=== PATIENT | male | born 1970 | race Asian ===

== ENCOUNTER 2019-03-25 08:26 | Emergency (ER) | payer MEDICAID, OTHER ==
[~2019-03-25] VITALS: Ht 180.3 cm; Wt 84.1 kg
[~2019-03-25 08:26] MED LIST: AZIT1PAC10 PO
[2019-03-25 08:41] VITALS: BP 135/89
[2019-03-25] MEDS ORDERED: pantoprazole 40mg Tablet.DR PO STA (09:47)
[2019-03-25] MEDS ORDERED: LORazepam 1 MG tablet PO ONE (09:50)
[2019-03-25] MEDS ORDERED: dicyclomine 10 MG capsule PO ONE (09:50)
--- NOTE | 2019-03-25 09:56 | NUR ---
PT REPROTS THAT HIS DAUGHTER CAN COME TO THE HOSPITAL AND PICK HIM U FOR A RIDE HOME, DUE TO PT TAKING ATIVAN.
[2019-03-25] MEDS ORDERED: PANT20TA3 PO (10:06)
[2019-03-25] MEDS ORDERED: LORA-269 PO (10:06)
[2019-03-25] MEDS ORDERED: DICY10CA88 PO (10:06)
== END 2019-03-25 10:53 | disposition home or self-care (01) ==
LOC: ER 08:26
DX: F10.230 Alcohol dependence with withdrawal, uncomplicated (principal); R11.10 Vomiting, unspecified; F15.90 Other stimulant use, unspecified, uncomplicated; F11.90 Opioid use, unspecified, uncomplicated; Z79.899 Other long term (current) drug therapy; Y90.9 Presence of alcohol in blood, level not specified
CPT/HCPCS: 99284

== ENCOUNTER 2019-09-18 04:45 | Inpatient (IN) | payer SELFPAY ==
[~2019-09-18] VITALS: Ht 180.3 cm; Wt 86.4 kg
[~2019-09-18 04:45] MED LIST changes: +DICY10CA88 PO; +LORA-269 PO; +PANT20TA3 PO
[2019-09-18] MEDS ORDERED: LORazepam 2 mg/ml vial IV ONE ×2 (04:55→05:10)
[2019-09-18] MEDS ORDERED: magnesium 2GM in 50ml NS 50 ML IV ONE ×2 (05:05→05:10)
[2019-09-18] MEDS ORDERED: haloperidol lactate 5mg/ml inj IM ONE ×2 (05:05)
[2019-09-18] MEDS ORDERED: cloNIDine 0.1 mg tablet PO SCH (05:10)
[2019-09-18 05:32] LABS: BASOPHILS # (AUTO) 0.1 X10'3 (0-0.2); BASOPHILS % (AUTO) 1.1 % (0-1); EOSINOPHILS # (AUTO) 0.5 X10'3 (0-0.9); EOSINOPHILS % (AUTO) 4.4 % (0-6); HEMATOCRIT 48.3 % (42.0-52.0); HEMOGLOBIN 16.9 g/dl (14.0-17.9); LYMPHOCYTES # (AUTO) 4.2 X10'3 (1.1-4.8); LYMPHOCYTES % (AUTO) 40.2 % (21-51); MEAN CORPUSCULAR HEMOGLOBIN 33.4 PG (27.0-31.0); MEAN CORPUSCULAR VOLUME 95.4 FL (78-98); MEAN PLATELET VOLUME 10.3 FL (7.4-10.4); MONOCYTES # (AUTO) 1.3 X10'3 (0-0.9); MONOCYTES % (AUTO) 12.1 % (2-12); NEUTROPHILS # (AUTO) 4.4 X10'3 (1.8-7.7); NEUTROPHILS % (AUTO) 42.2 % (42-75); PLATELET COUNT 233 X10'3 (140-440); RED BLOOD COUNT 5.06 X10'6 (4.70-6.10); RED CELL DISTRIBUTION WIDTH 13.4 % (11.5-14.5); WHITE BLOOD COUNT 10.5 X10'3 (4.5-11.0)
[2019-09-18 05:43] LABS: ALANINE AMINOTRANSFERASE 70 U/L (12-78); ALBUMIN 4.4 G/DL (3.4-5.0); ALKALINE PHOSPHATASE 50 IU/L (46-116); ANION GAP 17 (8-16); ASPARTATE AMINO TRANSFERASE 50 U/L (10-37); BILIRUBIN,TOTAL 0.5 MG/DL (0.1-1.0); BLOOD UREA NITROGEN 11 MG/DL (7-18); BUN/CREATININE RATIO 10.5 (5.4-32.0); CALCIUM 9.7 MG/DL (8.5-10.1); CHLORIDE 104 MMOL/L (99-107); CREATININE 1.05 MG/DL (0.60-1.10); GLUCOSE 111 MG/DL (70-104); MAGNESIUM 1.8 MG/DL (1.5-2.4); POTASSIUM 3.2 MMOL/L (3.5-5.1); SODIUM 141 MMOL/L (135-145); TOTAL CARBON DIOXIDE 20.1 MMOL/L (24-32); TOTAL PROTEIN 8.6 G/DL (6.4-8.2); eGFR 75 ML/MIN
[2019-09-18] MEDS ORDERED: potassium 10mEq/100ml NS w/LIDOcaine (10mg/bag) IV ONE (05:50)
[2019-09-18] MEDS ORDERED: potassium Cl 10 mEq/100mL bag IV ONE (05:55)
[2019-09-18 05:56] LABS: LIPASE 177 U/L (73-393)
[2019-09-18] MEDS ORDERED: CHLO25CA10 PO ×2 (05:57→11:08)
[2019-09-18] MEDS ORDERED: HYDROcodone/acetaminophen 5mg/325mg tablet PO PRN (06:05)
[2019-09-18] MEDS ORDERED: magnesium 2GM in 50ml NS 50 ML IV PRN (06:05)
[2019-09-18] MEDS ORDERED: magnesium hydroxide 30ml (MOM) UD suspension PO PRN (06:05)
[2019-09-18] MEDS ORDERED: magnesium Cl slow-release 64mg tablet PO PRN (06:05)
[2019-09-18] MEDS ORDERED: thiamine inj. 100 MG in normal saline 100ml IV soln 100 ML IV ONE (06:05)
[2019-09-18] MEDS ORDERED: haloperidol lactate 5mg/ml inj IM PRN (06:05)
[2019-09-18] MEDS ORDERED: magnesium 4gm in 100ml NS 100 ML IV PRN (06:05)
[2019-09-18] MEDS ORDERED: LORazepam 2 mg/ml vial IV PRN (06:05)
[2019-09-18] MEDS ORDERED: mag hydrox/Alum hydrox/simeth 30ml oral suspension PO PRN (06:05)
[2019-09-18] MEDS ORDERED: potassium Cl 20 mEq SR tablet PO PRN ×2 (06:05)
[2019-09-18] MEDS ORDERED: potassium CL 10mEq/100ml bag 100 ML IV PRN ×2 (06:05)
[2019-09-18] MEDS ORDERED: acetaminophen 325mg tablet PO PRN (06:05)
[2019-09-18] MEDS ORDERED: haloperidol 5mg tablet PO PRN (06:05)
[2019-09-18] MEDS ORDERED: ondansetron/PF 4mg/2ml inj IV PRN (06:05)
[2019-09-18] MEDS ORDERED: chlordiazePOXIDE 25mg capsule PO PRN (06:30)
--- NOTE | 2019-09-18 07:02 | NUR ---
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
[2019-09-18 07:52] LABS: URINE AMPHETAMINE SCREEN NEGATIVE (Neg); URINE BARBITUATE SCREEN NEGATIVE (Neg); URINE BENZODIAZEPINES SCREEN POSITIVE (Neg); URINE CANNABINOID SCREEN POSITIVE (Neg); URINE COCAINE SCREEN NEGATIVE (Neg); URINE METHADONE SCREEN NEGATIVE (Neg); URINE OPIATE SCREEN NEGATIVE (Neg); URINE PHENCYCLIDINE SCREEN NEGATIVE (Neg)
[2019-09-18] MEDS ORDERED: K and/or MAG REPLACEMENT MC SCH (08:00)
[2019-09-18] MEDS ORDERED: multivitamins, therapeutics tablet PO SCH (08:00)
[2019-09-18] MEDS ORDERED: folic acid inj. 2 MG, thiamine inj. 100 MG, MVI, adult No.4 with vit. K 10 ML in dextro... IV SCH ×4 (08:00)
[2019-09-18] MEDS ORDERED: thiamine 100mg tablet PO SCH (08:00)
[2019-09-18] MEDS ORDERED: folic acid 1mg tablet PO SCH (08:00)
--- NOTE | 2019-09-18 09:08 | NUR ---
spoke to pharmacist heidy regarding pt po folic acid multivit abd thamine and pt receving banan bag not complete yet ,as per pt is tolerating meals as per heidy he will put stop time on banana bag until its finished and start po meds for tomm morning.
[2019-09-18 10:10] VITALS: BP 123/85
--- NOTE | 2019-09-18 10:11 | NUR ---
pt arrived to [facility] from ER for etoh withdrawal. Pt a/ox3 and calm and pleasant, denies anxiety at this time. VSS. Pt states hx of seizure once when withdrawing. seizure pads placed on bed. Banana bag running @ 125ml/hr.
--- NOTE | 2019-09-18 12:06 | NUR ---
pt discharged to home. IV's removed. d/c paperwork reviewed and Rx for Librium give to pt per MD. pt walked to [facility] w[facility]tech for d/c.
[2019-09-19] MEDS ORDERED: multivitamins, therapeutics tablet PO SCH (08:00)
[2019-09-19] MEDS ORDERED: thiamine 100mg tablet PO SCH (08:00)
[2019-09-19] MEDS ORDERED: folic acid 1mg tablet PO SCH (08:00)
[2019-09-20] MEDS ORDERED: LORazepam 2 mg/ml vial IV PRN (06:05)
[2019-09-20] MEDS ORDERED: LORazepam 1 MG tablet PO PRN (06:05)
[2019-09-22] MEDS ORDERED: LORazepam 1 MG tablet PO PRN (06:05)
[2019-09-22] MEDS ORDERED: LORazepam 2 mg/ml vial IV PRN (06:05)
== END 2019-09-18 12:00 | disposition home or self-care (01) | DRG 897 ==
LOC: ER 04:45 → ED HOLD 06:04 → ORTHO 4S 09:40
PROVIDERS: ADMIT Family Medicine; ATTEND Family Medicine
DX: F13.239 Sedative, hypnotic or anxiolytic dependence with withdrawal, unspecified (principal); F10.231 Alcohol dependence with withdrawal delirium; E87.6 Hypokalemia; F11.90 Opioid use, unspecified, uncomplicated; F15.90 Other stimulant use, unspecified, uncomplicated; F41.9 Anxiety disorder, unspecified; I10 Essential (primary) hypertension; Z82.49 Family history of ischemic heart disease and other diseases of the circulatory system; Z79.899 Other long term (current) drug therapy
CPT/HCPCS: 36415; 80053; 80305; 80320; 83690; 83735; 84484; 85025; 93005; 96365; 96375; 96376; 99285; G0378; J1630; J2060; J3411; J3475; J3480; J3490; J7060

== ENCOUNTER 2019-10-30 16:07 | Emergency (ER) | payer OTHER ==
[~2019-10-30] VITALS: Ht 180.3 cm; Wt 82.2 kg
[~2019-10-30 16:07] MED LIST changes: -AZIT1PAC10 PO; +CHLO25CA10 PO; -DICY10CA88 PO; -LORA-269 PO; -PANT20TA3 PO
[2019-10-30] MEDS ORDERED: magnesium 2GM in 50ml NS 50 ML IV ONE (19:40)
[2019-10-30 19:48] LABS: BASOPHILS # (AUTO) 0.1 X10'3 (0-0.2); EOSINOPHILS # (AUTO) 0.1 X10'3 (0-0.9); HEMATOCRIT 50.4 % (42.0-52.0); HEMOGLOBIN 17.5 g/dl (14.0-17.9); LYMPHOCYTES # (AUTO) 3.7 X10'3 (1.1-4.8); LYMPHOCYTES % (AUTO) 36.1 % (21-51); MEAN CORPUSCULAR HGB CONC 34.7 g/dL (33.0-36.5); MEAN CORPUSCULAR VOLUME 95.2 FL (78-98); MONOCYTES # (AUTO) 0.8 X10'3 (0-0.9); MONOCYTES % (AUTO) 8.1 % (2-12); NEUTROPHILS # (AUTO) 5.5 X10'3 (1.8-7.7); NEUTROPHILS % (AUTO) 53.8 % (42-75); PLATELET COUNT 230 X10'3 (140-440); RED BLOOD COUNT 5.29 X10'6 (4.70-6.10); WHITE BLOOD COUNT 10.3 X10'3 (4.5-11.0)
[2019-10-30 19:56] LABS: ALBUMIN 4.4 G/DL (3.4-5.0); ANION GAP 12 (8-16); BILIRUBIN,TOTAL 0.4 MG/DL (0.1-1.0); BLOOD UREA NITROGEN 12 MG/DL (7-18); BUN/CREATININE RATIO 14.8 (5.4-32.0); CALCIUM 8.8 MG/DL (8.5-10.1); CHLORIDE 102 MMOL/L (99-107); CREATININE 0.81 MG/DL (0.60-1.10); GLUCOSE 104 MG/DL (70-104); POTASSIUM 3.7 MMOL/L (3.5-5.1); SODIUM 140 MMOL/L (135-145); TOTAL CARBON DIOXIDE 26.4 MMOL/L (24-32); TOTAL PROTEIN 8.7 G/DL (6.4-8.2); eGFR > 90 ML/MIN
[2019-10-30 19:57] LABS: ALANINE AMINOTRANSFERASE 35 U/L (12-78); ALKALINE PHOSPHATASE 48 IU/L (46-116); ASPARTATE AMINO TRANSFERASE 30 U/L (10-37); ETHANOL 0.232 GM/DL (0.0-0.010)
[2019-10-30] MEDS ORDERED: chlordiazePOXIDE 25mg capsule PO ONE (20:20)
[2019-10-30 20:22] LABS: LIPASE 87 U/L (73-393)
[2019-10-30] MEDS ORDERED: normal saline 1000ml 1,000 ML IV ONE ×2 (20:25)
[2019-10-30 20:29] LABS: CLARITY,URINE CLEAR (Clear); COLOR,URINE YELLOW (Yellow); GLUCOSE, URINE NEGATIVE (Neg); KETONES,URINE NEGATIVE (Neg); LEUKOCYTE ESTERASE ,URINE NEGATIVE (Neg); NITRITES, URINE NEGATIVE (Neg); OCCULT BLOOD,URINE SMALL (Neg); PH,URINE 6.5 (4.8-8.0); PROTEIN,URINE NEGATIVE (Neg); UROBILINOGEN,URINE 0.2 E.U/dL (0.2-1.0)
[2019-10-30 20:37] LABS: UA COLLECTION TYPE URINAL
[2019-10-30 20:39] LABS: URINE AMPHETAMINE SCREEN NEGATIVE (Neg); URINE BARBITUATE SCREEN NEGATIVE (Neg); URINE BENZODIAZEPINES SCREEN POSITIVE (Neg); URINE CANNABINOID SCREEN POSITIVE (Neg); URINE COCAINE SCREEN NEGATIVE (Neg); URINE METHADONE SCREEN NEGATIVE (Neg); URINE OPIATE SCREEN NEGATIVE (Neg); URINE PHENCYCLIDINE SCREEN NEGATIVE (Neg)
[2019-10-30 20:41] LABS: BACTERIA,URINE NONE SEEN /HPF (Neg); MUCUS STRANDS NONE SEEN /LPF (Neg); SQUAMOUS EPITHELIAL CELL,UR NONE SEEN /LPF (FEW); WBC,URINE 0-4 /HPF (0-4)
[2019-10-30] MEDS ORDERED: thiamine 100mg tablet PO ONE (21:25)
[2019-10-30] MEDS ORDERED: folic acid 1mg tablet PO ONE (21:25)
[2019-10-30 21:35] LABS: MAGNESIUM 2.1 MG/DL (1.5-2.4)
[2019-10-30] MEDS ORDERED: CHLO25CA10 PO (22:04)
[2019-10-30 22:14] VITALS: BP 141/104
== END 2019-10-30 22:17 | disposition home or self-care (01) ==
LOC: ER 16:08
DX: F10.229 Alcohol dependence with intoxication, unspecified (principal); F10.239 Alcohol dependence with withdrawal, unspecified; F41.9 Anxiety disorder, unspecified; F15.90 Other stimulant use, unspecified, uncomplicated; F11.90 Opioid use, unspecified, uncomplicated; R07.89 Other chest pain; R10.9 Unspecified abdominal pain; Z79.899 Other long term (current) drug therapy; Y90.0 Blood alcohol level of less than 20 mg/100 ml
CPT/HCPCS: 36415; 80053; 80305; 80320; 81001; 83690; 83735; 85025; 96361; 96374; 99284; J3475; J7030

== ENCOUNTER 2020-04-07 06:56 | Emergency (ER) | payer SELFPAY ==
[~2020-04-07] VITALS: Ht 182.9 cm; Wt 84.1 kg
[2020-04-07 06:59] VITALS: BP 120/91
--- NOTE | 2020-04-07 07:08 | NUR ---
pt is here for medical clearance for imp Addendum: 04/07/20 at 0708 by DOMENICO pt here for medical clearance for entrience in to rehab r/t to etoh abuse last drink was around 5 pm on 05/07/20
[2020-04-07] MEDS ORDERED: chlordiazePOXIDE 25mg capsule PO ONE (07:20)
[2020-04-07] MEDS ORDERED: GABA-534 PO (07:31)
[2020-04-07] MEDS ORDERED: CHLO25CA10 PO (07:31)
== END 2020-04-07 07:49 | disposition home or self-care (01) ==
LOC: ER 06:57
DX: F10.20 Alcohol dependence, uncomplicated (principal); F15.90 Other stimulant use, unspecified, uncomplicated; F11.90 Opioid use, unspecified, uncomplicated; Z79.899 Other long term (current) drug therapy; Y90.9 Presence of alcohol in blood, level not specified
CPT/HCPCS: 99283

== ENCOUNTER 2020-07-03 10:37 | Emergency (ER) | payer SELFPAY ==
[~2020-07-03] VITALS: Ht 182.9 cm; Wt 84.1 kg
[~2020-07-03 10:37] MED LIST changes: +GABA-534 PO
[2020-07-03] MEDS ORDERED: normal saline 1000ML IV soln IVB ONE (10:55)
[2020-07-03] MEDS ORDERED: LORazepam 2 mg/ml vial IV ONE ×3 (10:55→15:50)
[2020-07-03 11:38] LABS: BASOPHILS % (AUTO) 0.7 % (0-1); EOSINOPHILS % (AUTO) 1.1 % (0-6); HEMATOCRIT 47.8 % (42.0-52.0); HEMOGLOBIN 16.6 g/dl (14.0-17.9); LYMPHOCYTES # (AUTO) 1.4 X10'3 (1.1-4.8); LYMPHOCYTES % (AUTO) 31.2 % (21-51); MEAN CORPUSCULAR HGB CONC 34.7 g/dL (33.0-36.5); MEAN PLATELET VOLUME 10.2 FL (7.4-10.4); MONOCYTES # (AUTO) 0.5 X10'3 (0-0.9); MONOCYTES % (AUTO) 11.7 % (2-12); NEUTROPHILS # (AUTO) 2.4 X10'3 (1.8-7.7); NEUTROPHILS % (AUTO) 55.3 % (42-75); PLATELET COUNT 143 X10'3 (140-440); RED BLOOD COUNT 4.73 X10'6 (4.70-6.10); RED CELL DISTRIBUTION WIDTH 14.1 % (11.5-14.5); WHITE BLOOD COUNT 4.4 X10'3 (4.5-11.0)
[2020-07-03 11:56] LABS: ALBUMIN 3.2 G/DL (3.4-5.0); ALKALINE PHOSPHATASE 129 IU/L (46-116); ANION GAP 16 (8-16); BILIRUBIN,TOTAL 1.5 MG/DL (0.1-1.0); BLOOD UREA NITROGEN 12 MG/DL (7-18); BUN/CREATININE RATIO 12.9 (5.4-32.0); CALCIUM 8.6 MG/DL (8.5-10.1); CHLORIDE 98 MMOL/L (99-107); CREATININE 0.93 MG/DL (0.60-1.10); SODIUM 137 MMOL/L (135-145); TOTAL CARBON DIOXIDE 23.2 MMOL/L (24-32); eGFR 86 ML/MIN
[2020-07-03 12:01] LABS: ALBUMIN/GLOBULIN RATIO 0.7 (1.1-1.5); GLUCOSE 167 MG/DL (70-104); POTASSIUM 3.5 MMOL/L (3.5-5.1); TOTAL PROTEIN 7.8 G/DL (6.4-8.2)
[2020-07-03 12:08] LABS: ALANINE AMINOTRANSFERASE 268 U/L (12-78); ASPARTATE AMINO TRANSFERASE 543 U/L (10-37)
[2020-07-03 13:32] LABS: CLARITY,URINE CLEAR (Clear); COLOR,URINE YELLOW (Yellow); GLUCOSE, URINE NEGATIVE (Neg); KETONES,URINE TRACE mg/dl (Neg); LEUKOCYTE ESTERASE ,URINE NEGATIVE (Neg); NITRITES, URINE NEGATIVE (Neg); OCCULT BLOOD,URINE TRACE-INTACT (Neg); PH,URINE 5.5 (4.8-8.0); PROTEIN,URINE TRACE mg/dl (Neg); UROBILINOGEN,URINE 0.2 E.U/dL (0.2-1.0)
[2020-07-03 13:35] LABS: UA COLLECTION TYPE CLN CATCH MIDSTREAM
[2020-07-03 13:40] LABS: SQUAMOUS EPITHELIAL CELL,UR FEW /LPF (FEW)
[2020-07-03 13:41] LABS: BACTERIA,URINE FEW /HPF (Neg); WBC,URINE 0-4 /HPF (0-4)
[2020-07-03] MEDS ORDERED: chlordiazePOXIDE 25mg capsule PO ONE (14:10)
[2020-07-03] MEDS ORDERED: CHLO25CA10 PO (14:21)
--- NOTE | 2020-07-03 15:34 | NUR ---
GAVE PT SOME SOUP BECAUSE HE WAS STATING HIS STOMACH HURT FROM NOT EATING FOR THE LAST FEW DAYS.
[2020-07-03] MEDS ORDERED: LORazepam 2 mg/ml vial IM ONE (15:40)
[2020-07-03] MEDS ORDERED: LORazepam 1 MG tablet PO ONE (15:40)
[2020-07-03 16:06] VITALS: BP 136/68
== END 2020-07-03 16:30 | disposition home or self-care (01) ==
LOC: ER 10:37
DX: F10.239 Alcohol dependence with withdrawal, unspecified (principal); R19.7 Diarrhea, unspecified; R11.2 Nausea with vomiting, unspecified; F41.9 Anxiety disorder, unspecified; F15.90 Other stimulant use, unspecified, uncomplicated; F11.90 Opioid use, unspecified, uncomplicated; Z79.899 Other long term (current) drug therapy; Y90.9 Presence of alcohol in blood, level not specified
CPT/HCPCS: 36415; 80053; 81001; 85025; 93005; 96361; 96374; 96376; 99285; J2060; J7030; 96375

== ENCOUNTER 2020-09-10 06:29 | Emergency (ER) | payer OTHER ==
[~2020-09-10] VITALS: Ht 180.3 cm; Wt 82.6 kg
[2020-09-10] MEDS ORDERED: folic acid 1mg tablet PO ONE (10:10)
[2020-09-10] MEDS ORDERED: chlordiazePOXIDE 25mg capsule PO ONE ×2 (10:10→12:30)
[2020-09-10] MEDS ORDERED: thiamine 100mg tablet PO ONE (10:10)
[2020-09-10 10:32] LABS: BASOPHILS # (AUTO) 0.1 X10'3 (0-0.2); BASOPHILS % (AUTO) 0.8 % (0-1); EOSINOPHILS % (AUTO) 0.1 % (0-6); HEMATOCRIT 46.6 % (42.0-52.0); LYMPHOCYTES # (AUTO) 1.6 X10'3 (1.1-4.8); LYMPHOCYTES % (AUTO) 12.1 % (21-51); MEAN CORPUSCULAR HEMOGLOBIN 34.4 PG (27.0-31.0); MEAN CORPUSCULAR HGB CONC 34.3 g/dL (33.0-36.5); MEAN CORPUSCULAR VOLUME 100.1 FL (78-98); MEAN PLATELET VOLUME 9.4 FL (7.4-10.4); MONOCYTES # (AUTO) 1.8 X10'3 (0-0.9); MONOCYTES % (AUTO) 13.4 % (2-12); NEUTROPHILS % (AUTO) 73.6 % (42-75); PLATELET COUNT 277 X10'3 (140-440); RED BLOOD COUNT 4.66 X10'6 (4.70-6.10); RED CELL DISTRIBUTION WIDTH 13.6 % (11.5-14.5); WHITE BLOOD COUNT 13.5 X10'3 (4.5-11.0)
[2020-09-10 10:46] LABS: ALANINE AMINOTRANSFERASE 394 U/L (12-78); ALBUMIN 3.6 G/DL (3.4-5.0); ALBUMIN/GLOBULIN RATIO 0.9 (1.1-1.5); ALKALINE PHOSPHATASE 95 IU/L (46-116); ANION GAP 12 (8-16); ASPARTATE AMINO TRANSFERASE 384 U/L (10-37); BLOOD UREA NITROGEN 12 MG/DL (7-18); BUN/CREATININE RATIO 11.4 (5.4-32.0); CHLORIDE 98 MMOL/L (99-107); CREATININE 1.05 MG/DL (0.60-1.10); GLUCOSE 133 MG/DL (70-104); MAGNESIUM 1.2 MG/DL (1.5-2.4); POTASSIUM 3.7 MMOL/L (3.5-5.1); SODIUM 137 MMOL/L (135-145); TOTAL CARBON DIOXIDE 27.3 MMOL/L (24-32); TOTAL PROTEIN 7.8 G/DL (6.4-8.2); eGFR 74 ML/MIN
[2020-09-10 10:50] LABS: ETHANOL < 0.010 GM/DL (0.0-0.010)
[2020-09-10 11:45] LABS: URINE AMPHETAMINE SCREEN NEGATIVE (Neg); URINE BARBITUATE SCREEN POSITIVE (Neg); URINE BENZODIAZEPINES SCREEN POSITIVE (Neg); URINE CANNABINOID SCREEN NEGATIVE (Neg); URINE COCAINE SCREEN NEGATIVE (Neg); URINE METHADONE SCREEN NEGATIVE (Neg); URINE OPIATE SCREEN NEGATIVE (Neg); URINE PHENCYCLIDINE SCREEN NEGATIVE (Neg)
[2020-09-10 12:00] LABS: CLARITY,URINE CLOUDY (Clear); COLOR,URINE YELLOW (Yellow); GLUCOSE, URINE NEGATIVE (Neg); KETONES,URINE 40 mg/dl (Neg); LEUKOCYTE ESTERASE ,URINE NEGATIVE (Neg); NITRITES, URINE NEGATIVE (Neg); OCCULT BLOOD,URINE TRACE-INTACT (Neg); PROTEIN,URINE 30 mg/dl (Neg)
[2020-09-10 12:01] LABS: UA COLLECTION TYPE CLN CATCH MIDSTREAM
[2020-09-10 12:03] LABS: MUCUS STRANDS MANY /LPF (Neg); SQUAMOUS EPITHELIAL CELL,UR FEW /LPF (FEW)
[2020-09-10 12:04] LABS: BACTERIA,URINE 1+ /HPF (Neg); WBC,URINE 0-4 /HPF (0-4)
[2020-09-10] MEDS ORDERED: CHLO25CA10 PO (12:29)
[2020-09-10 13:12] VITALS: BP 137/100
== END 2020-09-10 13:13 | disposition home or self-care (01) ==
LOC: ER 06:30
DX: F10.232 Alcohol dependence with withdrawal with perceptual disturbance (principal); R11.2 Nausea with vomiting, unspecified; R19.7 Diarrhea, unspecified; R10.84 Generalized abdominal pain; F41.9 Anxiety disorder, unspecified; F15.90 Other stimulant use, unspecified, uncomplicated; F11.90 Opioid use, unspecified, uncomplicated; Z72.89 Other problems related to lifestyle; Z79.899 Other long term (current) drug therapy; Y90.0 Blood alcohol level of less than 20 mg/100 ml
CPT/HCPCS: 36415; 80053; 80305; 80320; 81001; 83735; 85025; 99284

== ENCOUNTER 2021-04-14 09:49 | Emergency (ER) | payer MEDICAID, OTHER ==
[~2021-04-14] VITALS: Ht 180.3 cm; Wt 86.4 kg
[2021-04-14 09:52] VITALS: BP 144/96
[2021-04-14] MEDS ORDERED: GABA100C PO (10:01)
[2021-04-14] MEDS ORDERED: ONDA4TAB12 PO (10:01)
[2021-04-14] MEDS ORDERED: LORA-269 PO (10:01)
== END 2021-04-14 10:14 | disposition home or self-care (01) ==
LOC: ER 09:50
DX: F10.239 Alcohol dependence with withdrawal, unspecified (principal); F41.9 Anxiety disorder, unspecified; I10 Essential (primary) hypertension; Z72.89 Other problems related to lifestyle; F15.90 Other stimulant use, unspecified, uncomplicated; F11.90 Opioid use, unspecified, uncomplicated; Z79.899 Other long term (current) drug therapy
CPT/HCPCS: 99283